=== PATIENT | female | born 1960 | race Caucasian/White ===

== ENCOUNTER → 2018-05-06 14:51 | Outpatient (CLI) | payer MEDICARE, SELFPAY ==
--- NOTE | 2018-05-06 14:52 | XR_ITS ---
XR foot wt bearing RT 3V, XR foot wt bearing LT 3V Ordering Physician: Comfort Delgado DPM Patient Age: 58 years: Female HISTORY: ITS.REASON: pain Right foot pain TECHNIQUE: Left foot 3 view weightbearing Right foot 3 view weightbearing COMPARISON : No studies prior to today ====== LEFT FOOT 3 view weightbearing Metatarsals and tarsals appear intact. Question possible developing relative pes planus on lateral view. Scant plantar calcaneal spur developing. 4 -5 mm length. The joint spaces are well-maintained no erosions. No evidence of fracture or stress fracture on these views. IMPRESSION------ No fracture or acute findings. . ======= RIGHT FOOT 3 view weightbearing Metatarsals and tarsals appear intact. Question possible developing pes planus on on lateral view . Scant prominence reflecting minor plantar calcaneal spur developing. 4 mm length. The joint spaces are well-maintained no erosions. No definitive fracture evident. . I would only note there may be some very subtle relative cortical thickening at the medial aspect of the second metatarsal but. Is there pain in this region. Could reflect subtle stress reaction particularly noted a small area upon the lateral aspect of the bone here as well. It requires correlation. Also noted there diffuse linear artifact on these images of both of the right and left foot. IMPRESSION: -------- No definitive fracture. Only question some subtle cortical cortical thickening at the second metatarsal. If pain in this region could reflect a very subtle stress response but equivocal
== END ==
PROVIDERS: Visit Provider Podiatrist
DX: M79.673 Pain in unspecified foot (principal)
CPT/HCPCS: 73630

== ENCOUNTER → 2018-08-09 12:26 | Outpatient (POV) | payer MEDICARE, SELFPAY | PROVIDERS: Visit Provider Specialist | DX: M79.671 Pain in right foot (principal); M79.672 Pain in left foot; R20.0 Anesthesia of skin; R20.2 Paresthesia of skin | CPT/HCPCS: 95886; 95909 ==

== ENCOUNTER 2018-08-24 10:00 | Outpatient (RCR) | payer MEDICARE, SELFPAY ==
--- NOTE | 2018-07-19 13:26 | HMH.PTOPWND ---
Rehab Outpt Wound Evaluation Rehab OP Wound Evaluation Start: 07/19/18 13:01 Freq: Status: Active Protocol: Document 07/19/18 13:16 PHOLUKE (Rec: 07/19/18 13:26 PHORNE [id number]) Electronically Signed By Real Woody, PT 07/19/18 13:16 Subjective/History History History Pt is 58 yowf who presents with c/o carlos a LE edema and pain x ~1 yr with insidious onset of symptoms. She reports pain is intermittent and from her knees distal carlos a. She reports swellling is worse with being on her feet a lot during the day. She reports PMH of HTN, colitis, migraine GALEANO, OA, and hiatal hernia. Subjective Subjective Currently she c/o pain in carlos a LE 2/10, but reports 10/10 at worst. Lymphedema Eval Classification of Lymphedema Secondary Lymphedema Yes Stemmer's sign Stemmer's Sign no Stage of Lymphedema Lymphedema stages Stage 0 (subjective c/o heaviness and aching) Pain Scale Pain Scale (0-10) 2 Affected Extremities Areas Affected by Lymphedema/Edema Right Lower Extremity Left Lower Extremity Manual Lymphatic Drainage Treatment Area MLD Treatment Area Right Lower Extremity Left Lower Extremity Wound Problems/Impairments Impairments Problems/Impairmments Palpation Tenderness Increased Edema Impaired Self Care/Self Management Prognosis Rehab Potential Fair Clinical Impression Consistent with Diagnosis Yes Short Term Goals Number of Weeks 4 Decreased Palpation Tenderness Yes: to min Decrease Edema Yes: by 25% Decrease Subjective C/O Pain Yes: 1/10 Patient to Understand Lymphedema Yes Treatment and Exercises Shelter Goals Number of Weeks 8 Decreased Palpation Tenderness Yes: to none Decrease Edema Yes: by 75% Decrease Subjective C/O Pain Yes: 0/10 Patient to be Ind w/ HEP Yes Patient to Adhere Lymphedema Precautions Yes Outpatient Therapy Plan of Care Treatment Plan May Include Therapeutic Exercise Including Home Yes Exercise Program Manual Therapy Techniques Yes Neuromuscular Re-education Yes Orthotics/Bracing/Splinting Yes Manual Lymphatic Drainage Yes Eval/Re-Eval Yes Frequency
== END 2018-08-24 10:15 | disposition home or self-care (01) ==
LOC: PT 10:00
PROVIDERS: Visit Provider Podiatrist
DX: R60.0 Localized edema (principal)
CPT/HCPCS: 97110; 97140; 97162; 97760

== ENCOUNTER → 2018-09-13 12:41 | Outpatient (CLI) | payer MEDICARE, SELFPAY ==
--- NOTE | 2018-09-13 12:44 | US_ITS ---
US Arterial Ankle Brachial Ind History: Leg pain, claudication, leg numbness, skin changes ORDERING PHYSICIAN: Comfort Delgado DPM PATIENT AGE: 58 years TECHNIQUE: Segmental pressures obtained of both right and left leg. These are compared to brachial blood pressure to yield index at each level sampled including summary DENISSE. The data sheets from the procedure are available in PACS FINDINGS Rest study only performed today No prior studies available for comparison. Blood pressures reported are in millimeters mercury. RIGHT LEG DENISSE = 1.0. RIGHT LEG TBI=.9 Brachial BP: 152 Thigh BP: 150 Calf BP: 149 Ankle PT: 157 Ankle DP : 145 Digit =134 LEFT LEG DENISSE = 1.0 LEFT LEG TBI= 1.1 Brachial BPD: 149 Thigh BP: 153 Calf BP: 138 Ankle PT:154 Ankle DP: 153 Digit = 161 Pulses and waveforms: Normal IMPRESSION: The ABIs as reported above are within normal limits. Waveforms and pulses are also unremarkable.
== END ==
PROVIDERS: PCP Family Medicine; Visit Provider Podiatrist
DX: R09.89 Other specified symptoms and signs involving the circulatory and respiratory systems (principal)
CPT/HCPCS: 93922

== ENCOUNTER → 2019-11-24 10:05 | Outpatient (CLI) | payer MEDICARE, SELFPAY ==
--- NOTE | 2019-11-24 10:13 | MM_ITS ---
PROCEDURE: MM DIG SCREENING MAMM BI W/CAD CLINICAL INDICATION: SCREENING There is no personal or family history of breast cancer COMPARISON: None available for review TECHNIQUE: Standard CC and MLO images and 3D Tomosynthesis was obtained. R2 CAD reviewed. FINDINGS: Minimal scattered fibroglandular densities are seen in the central portions and subareolar regions of both breasts. There are oval benign-appearing calcifications left breast. There is no suspicious lesion and no suspicious microcalcifications. IMPRESSION: Fibrofatty parenchyma with no suspicious lesions seen BI-RAD Category: 2 Benign Finding(s) FOLLOW-UP: 1YR 1 Year Follow-up (A letter has been sent to the patient regarding results of the study.) Dictated by: Dr. Arsalan Bruce MD 11/26/2019 11:[address] Arsalan Bruce MD in [place] 11/26/2019 11:47
== END ==
PROVIDERS: PCP Family Medicine; Visit Provider Family Medicine
DX: Z12.31 Encounter for screening mammogram for malignant neoplasm of breast (principal)
CPT/HCPCS: 77063; 77067

== ENCOUNTER → 2020-10-02 14:19 | Outpatient (POV) | payer MEDICARE, SELFPAY | PROVIDERS: Visit Provider Dermatology | DX: Z00.00 Encounter for general adult medical examination without abnormal findings (principal) ==

== ENCOUNTER → 2022-01-21 08:05 | Outpatient (CLI) | payer MEDICARE, SELFPAY ==
--- NOTE | 2022-01-21 08:16 | MM_ITS ---
PROCEDURE INFORMATION: Exam: MG Bilateral Screening 3D Mammography Exam date and time: 01/21/2022 8:28 AM Age: 62 years old Clinical indication: Screening examination. No family history of breast cancer. TECHNIQUE: Imaging protocol: Bilateral Screening tomosynthesis and 2D mammography including computer-aided detection (CAD) when performed. COMPARISON: 1. MG MM DIG SCREENING MAMM BI W/CAD 11/24/2019 10:29 AM 2. MG MAMMO SPOUT WORKER 01/29/2009 1:46 PM 3. SD MAMMO SPOUT WORKER 08/28/2008 11:07 AM FINDINGS: MAMMOGRAPHY: Breast composition: The breast tissue is composed of scattered areas of fibroglandular density. Mass: No suspicious mass. Architectural distortion: None. Calcifications: No suspicious calcifications. Asymmetric density: None. Skin thickening: None. Axillary adenopathy: None. IMPRESSION: No mammographic evidence of malignancy. Annual screening is recommended unless otherwise clinically indicated. ASSESSMENT: BI-RADS Category 1: Negative
--- NOTE | 2022-01-21 08:16 | XR_ITS ---
FINAL REPORT TECHNIQUE: Bone densitometry calculations of the lumbar spine and both hips were obtained. CLINICAL HISTORY: post menopausal FINDINGS: DEXA BONE DENSITY AXIAL SKELETON Using L1-4, the bone mineral density of the spine is 1.228 g/cm2, corresponding to T-score of 1.6. Using the left hip, the bone mineral density of the femoral neck is 0.835 g/cm2, corresponding to a T-score of -0.9. Using the right hip, the bone mineral density of the femoral neck is 0.921 g/cm2, corresponding to a T-score of --0.2. NOTE: T-score: Standard deviation compared with peak bone mass of young adult mean. *Following the recommendations of the International Society of Bone densitometry, classification of hip BMD is based on the lower of two T-scores; total hip or femoral neck. IMPRESSION: Normal bone mineral density of the lumbar spine and hips. Reviewed, Interpreted and Dictated by Jose Ledesma MD Transcribed by Ashlee Persaud Authenticated by Jose Ledesma MD on 01/21/2022 12:08:12 PM [facility]
== END ==
PROVIDERS: PCP Family Medicine; Visit Provider Family Medicine
DX: Z12.31 Encounter for screening mammogram for malignant neoplasm of breast (principal); Z78.0 Asymptomatic menopausal state
CPT/HCPCS: 77063; 77067; 77080

== ENCOUNTER → 2023-01-23 08:06 | Outpatient (CLI) | payer MEDICARE, SELFPAY ==
--- NOTE | 2023-01-23 08:13 | XR_ITS ---
FINAL REPORT TECHNIQUE: Bone densitometry calculations of the lumbar spine and hip were obtained. CLINICAL HISTORY: . post menopausal COMPARISON: 01/21/2022 FINDINGS: DEXA BONE DENSITY AXIAL SKELETON Using L1-4, the bone mineral density of the spine is 1.338 g/cm2, corresponding to T-score of 2.6. Previously measured 1.228 g/cm2, corresponding to T-score of 1.6. Using the right hip, the bone mineral density of the femoral neck is 0.802 g/cm2, corresponding to a T-score of -0.4. Previously measured 0.921 g/cm2, corresponding to T-score of -0.2. NOTE: T-score: Standard deviation compared with peak bone mass of young adult mean. *Following the recommendations of the International Society of Bone densitometry, classification of hip BMD is based on the lower of two T-scores; total hip or femoral neck. IMPRESSION: Normal bone mineral density of the lumbar spine and right hip. FRAX not reported because: Some T-score for Spine Total or hip Total or femoral neck at or above -1.0. Reviewed, Interpreted and Dictated by Moris Shelley III, MD Transcribed by Ashlee Persaud Authenticated and [facility]
--- NOTE | 2023-01-23 08:13 | MM_ITS ---
PROCEDURE INFORMATION: Exam: MG Bilateral Screening 3D Mammography Exam date and time: 01/23/2023 8:15 AM Age: 63 years old Clinical indication: Screening examination TECHNIQUE: Imaging protocol: Bilateral Screening tomosynthesis and 2D mammography including computer-aided detection (CAD) when performed. COMPARISON: 1. MG MM DIG SCREENING MAMM BI W/CAD 01/21/2022 8:28 AM 2. MG MM DIG SCREENING MAMM BI W/CAD 11/24/2019 10:29 AM FINDINGS: MAMMOGRAPHY: Breast composition: There are scattered areas of fibroglandular density. Mass: None. Architectural distortion: None. Calcifications: No suspicious calcifications. Asymmetric density: None. Skin thickening: None. Axillary adenopathy: None. IMPRESSION: No mammographic evidence of malignancy. Annual screening is recommended unless otherwise clinically indicated. ASSESSMENT: BI-RADS Category 1: Negative
--- NOTE | 2023-01-23 08:14 | XR_ITS ---
FINAL REPORT CLINICAL HISTORY: BURSITIS, pain @ Lt knee x yrs FINDINGS: Three views of the left knee reveal no evidence of fracture or dislocation. The bony alignment is normal. The joint spaces are preserved. There is no evidence of joint effusion. No localized soft tissue abnormality is seen. IMPRESSION: No acute abnormality identified. Reviewed, Interpreted and Dictated by Moris Shelley III, MD Transcribed by Ashlee Persaud Authenticated and [facility]
== END ==
PROVIDERS: PCP Family Medicine; Visit Provider Family Medicine
DX: Z12.31 Encounter for screening mammogram for malignant neoplasm of breast (principal); Z78.0 Asymptomatic menopausal state; Z13.820 Encounter for screening for osteoporosis; M70.50 Other bursitis of knee, unspecified knee
CPT/HCPCS: 73562; 77063; 77067; 77080

== ENCOUNTER 2024-01-28 14:38 | Outpatient (CLI) | payer MEDICARE, SELFPAY ==
--- NOTE | 2024-01-28 14:47 | MM_ITS ---
PROCEDURE INFORMATION: Exam: MG Bilateral Screening 3D Mammography Exam date and time: 01/28/2024 2:52 PM Age: 64 years old Clinical indication: Screening examination TECHNIQUE: Imaging protocol: Bilateral Screening tomosynthesis and 2D mammography including computer-aided detection (CAD) when performed. COMPARISON: 1. MG MM DIG SCREENING MAMM BI W/CAD 01/23/2023 8:15 AM 2. MG MM DIG SCREENING MAMM BI W/CAD 01/21/2022 8:28 AM FINDINGS: MAMMOGRAPHY: Breast composition: There are scattered areas of fibroglandular density. Mass: None. Architectural distortion: None. Calcifications: No suspicious calcifications. Asymmetric density: None. Skin thickening: None. Axillary adenopathy: None. IMPRESSION: No mammographic evidence of malignancy. Annual screening is recommended unless otherwise clinically indicated. ASSESSMENT: BI-RADS Category 1: Negative
== END 2024-01-28 23:59 ==
LOC: RAD 14:38
PROVIDERS: PCP Family Medicine; Visit Provider Family Medicine
DX: Z12.31 Encounter for screening mammogram for malignant neoplasm of breast (principal)
CPT/HCPCS: 77063; 77067

== ENCOUNTER 2024-04-09 08:32 | Emergency (ER) | payer MEDICARE, SELFPAY ==
[2024-04-09 08:45] VITALS: BP 138/66; PULSE 135; RESP 18; TEMP 36.8; O2SAT 97; BMI 29.2
--- NOTE | 2024-04-09 09:08 | ED_ITS ---
Discharge Plan Disposition Patient Disposition: Home, Self-Care Condition: Good Prescriptions Prescriptions: No Action loratadine 10 mg tablet 10 mg PO DAILY 30 Days Qty: 30 propranolol 20 mg tablet 20 mg PO BID 90 Days mxgtczchuh-afrbnzdokndhi-ekrw 50-325-40 mg tablet 1 tab PO NEEDED PRN (Reason: headaches) 8 Days diclofenac sodium [Voltaren] 1 % gel 4 g TOPICAL QID Qty: 30 2RF Rx Instructions: apply to single knee, ankle, foot; gently massage into area; for foot includes sole/toes/top of foot lisinopril 10 mg tablet 10 mg PO DAILY 30 Days tramadol 50 mg tablet 50 mg PO Q8H 3 Days Qty: 9 0RF losartan 50 mg tablet 50 mg PO DAILY Patient Comments: TAKE 1 TABLET BY MOUTH DAILY atorvastatin 40 mg tablet 40 mg PO DAILY amitriptyline 25 mg tablet See Rx Instructions .ROUTE .COMPLEX Patient Comments: TAKE 1 TO 2 TABLETS BY MOUTH EVERY DAY AT BEDTIME Rx Instructions: TAKE 1 TO 2 TABLETS BY MOUTH EVERY DAY AT BEDTIME baclofen 10 mg tablet 10 mg PO BID Patient Comments: TAKE 1 TABLET BY MOUTH TWICE DAILY omeprazole 20 mg capsule,delayed release(DR/EC) 20 mg PO DAILY Patient Comments: TAKE 1 CAPSULE BY MOUTH EVERY DAY 30 MINUTES BEFORE BREAKFAST diclofenac sodium 75 mg tablet,delayed release (DR/EC) 75 mg PO BID Patient Comments: TAKE 1 TABLET BY MOUTH TWICE DAILY topiramate 50 mg tablet 50 mg PO BID Patient Comments: TAKE 1 TABLET BY MOUTH TWICE DAILY Referrals Follow up/Referrals: Mik Sultana MD [Primary Care Provider] - See instructions Activity Restrictions/Add. Instructions Additional Instructions/Restrictions: Go home and rest. It would be best if you rested tomorrow too. Resume your normal migraine headache medication. Follow up with your regular doctor. GO TO THE ER FOR ANY WORSENING SYMPTOMS OR CONCERN, ESPECIALLY BOWEL OR BLADDER ISSUES, SADDLE AREA NUMBNESS, FEVER, ETC Clinical Impressions Clinical Impression: Migraine Instructions Patient Instructions: Ketorolac Injection, Dexamethasone Injection Discharge ED Provider: Imtiaz Cohen [facility] General Stated complaint: migraine, nausea Mode of Arrival: Ambulatory Source of Information: Patient Limitations: No Limitations Time Seen by Provider: 04/09/24 09:07 Description of Symptoms (Recalled from Triage Doc. by RN): Pt's symptoms are GALEANO. HEENT Symptoms (Recalled from RN notes): Yes Resp Symptoms (Recalled from RN notes): No Skin Symptoms (Recalled from RN notes): No MS Symptoms (Recalled from RN notes): No Functional Status (Recalled from RN notes): n/a History of Present Illness Provider Complaint: She states that she has had her normal migraine symptoms since around 0500 this am. She has took her migraine medication and it has not helped. In the past she has came in to have shots when her migraine medication did not work. She states that her symptoms feel like her normal symptoms. She denies that this is the worst head ache of her life. Related Data Home Medications Medication Instructions Recorded Confirmed kngulfybzr-klkuakmpgqxhj-zqgoknxh 1 tab PO NEEDED PRN headaches 8 05/06/18 04/09/24 50 mg-325 mg-40 mg tablet days loratadine 10 mg tablet 10 mg PO DAILY allergies 30 days 05/06/18 04/09/24 ##30 propranolol 20 mg tablet 20 mg PO BID blood pressure 90 days 05/06/18 04/09/24 lisinopril 10 mg tablet 10 mg PO DAILY 30 days 08/24/18 08/24/18 amitriptyline 25 mg tablet See Rx Instructions .Route .COMPLEX 04/09/24 04/09/24 atorvastatin 40 mg tablet 40 mg PO DAILY 04/09/24 04/09/24 baclofen 10 mg tablet 10 mg PO BID 04/09/24 04/09/24 diclofenac sodium 75 mg 75 mg PO BID 04/09/24 04/09/24 tablet,delayed release losartan 50 mg tablet 50 mg PO DAILY 04/09/24 04/09/24 omeprazole 20 mg capsule,delayed 20 mg PO DAILY 04/09/24 04/09/24 release topiramate 50 mg tablet 50 mg PO BID 04/09/24 04/09/24 Previous Rx's Medication Instructions Recorded diclofenac sodium 1 % topical gel 4 g topical QID pain #30 grams 05/06/18 (Voltaren) tramadol 50 mg tablet 50 mg PO Q8H pain 3 days #9 tabs 08/24/18 Allergies Allergy/AdvReac Type Severity Reaction Status Date / Time codeine Allergy Unknown NA-NAUSEA/V Verified 04/09/24 09:03 [From Tylenol-Codeine #3] OMITING Worker's Comp Is this a Worker's Comp case?: No [facility] Disclaimer: The information contained in this section may have been updated after the patient was seen, as this information can be updated by other users. Social History Smoking Status: Never smoker alcohol intake: never current occupational status: other Travel in the last 8 weeks: None ROS Obtained: Yes All systems reviewed & no additional complaints except as documented Constitutional Constitutional: Denies chills, Denies fever(s), Reports headache(s) and Denies weakness Eyes Eyes: Denies eye discharge ENT Ears, Nose, Mouth, and Throat: Denies disequilibrium, Denies dizziness, Denies otalgia, Reports headache(s) and Denies sore throat Cardiovascular Cardiovascular: Denies chest pain Respiratory Respiratory: Denies shortness of breath, Denies chest congestion, Denies cough, Denies stridor and Denies wheezing Gastrointestinal Gastrointestingal: Denies nausea or vomiting Musculoskeletal Musculoskeletal: Reports system reviewed and no additional complaints, except as documented, Denies abnormal gait, Denies arthralgias and Denies numbness Integumentary/Breasts Skin/Breast: Denies rash Neurologic Neurologic: Reports as per HPI, Denies abnormal gait, Denies disequilibrium, Denies dizziness, Reports headache(s), Denies numbness, Denies paresthesias, Denies radicular pain and Denies weakness Allergic/Immunologic Allergic/Immunologic: Denies wheezing Physical Exam General General appearance: alert and in no apparent distress Head Head exam: atraumatic, normocephalic and normal inspection Eye Eye exam: Present normal appearance, PERRL and EOMI ENT ENT exam: Present normal exam, normal oropharynx, mucous membranes moist, TM's normal bilaterally and normal external ear exam Neck Neck exam: Present normal inspection, full ROM and trachea midline; Absent meningismus or lymphadenopathy Chest Chest inspection: Present normal inspection and symmetric chest wall rise; Absent tenderness Respiratory Respiratory exam: Present normal lung sounds bilaterally; Absent respiratory distress Cardiovascular Cardiovascular exam: Present regular rate and normal rhythm; Absent JVD Abdominal Exam Abdominal exam: Present soft and normal bowel sounds; Absent distention, tenderness or guarding Extremities Exam Extremities exam: Present normal inspection, full ROM and normal capillary refill; Absent calf tenderness Back Exam Back exam: Present normal inspection; Absent tenderness Neurological Exam Neurological exam: Present alert, oriented X3, CN II-XII intact, normal gait and reflexes normal; Absent motor sensory deficit Expanded Neurological Exam Speech: Present fluid speech Cranial nerves: Normal: EOM function (II, III, IV, ), facial sensation (V), facial palsy (VII), gag reflex (IX), spinal accessory function (XI) and tongue deviation (XII) Cerebellar function: normal gait Motor strength - LUE: 5/5 Motor strength - RUE: 5/5 Motor strength - LLE: 5/5 Motor strength - RLE: 5/5 Upper motor neuron exam: Normal: melly neglect, pronator drift, Babinski sign and sensory extinction Sensory exam upper extremity: Normal: light touch and 2 point discrimination Sensory exam lower extremity: Normal: light touch and 2 point discrimination DTR: 2+: biceps (L), biceps (R), patellar (L), patellar (R), Achilles tendon (L) and Achilles tendon (R) Psychiatric Psychiatric exam: Present normal affect and normal mood Skin Skin exam: Present warm, dry, intact and normal color Lymphatic Lymphatic Findings: no adenopathy Medical Decision Making Medical Records Medical records reviewed: No I reviewed the patient's medical records. Sadi Inquiry Pt receiving controlled substance: No Vital Signs: 04/09/24 08:45 Temperature 98.3 F Temperature Source Oral Pulse Rate [Right Radial] 135 H Respiratory Rate 18 Blood Pressure [Right Arm] 138/66 Blood Pressure Mean [Right Arm] 90 Blood Pressure Source [Right Arm] Automatic Cuff Blood Pressure Position [Right Arm] Sitting 02 Sat by Pulse Oximetry 97 Oxygen Delivery Method Room Air
[2024-04-09] MEDS: DEXAMETHASONE 4MG/ML 1ML VIAL 8 MG IM (09:32)
[2024-04-09] MEDS: KETOROLAC 60MG/2ML VIAL 30 MG IM (09:32)
[2024-04-09 09:58] VITALS: BP 138/66; PULSE 135; RESP 18; TEMP 36.8; O2SAT 97
== END 2024-04-09 09:58 | disposition home or self-care (01) ==
PROVIDERS: Emergency Provider Nurse Practitioner Family; PCP Family Medicine
DX: G43.909 Migraine, unspecified, not intractable, without status migrainosus (principal)
CPT/HCPCS: 96372; 99204; 99212; G0463; J1100; J1885

== ENCOUNTER 2025-02-06 13:03 | Outpatient (CLI) | payer MEDICARE, SELFPAY ==
--- OUTSIDE RECORDS SUMMARY | 2025-02-06 13:05 | XMS_ITS ---
Author Organization Unknown Vital Signs BpStanding BpSitting BpSupine Date Temperature HeartRate Weight Hei ght Spo2 Respiration Bmi HeadCircumference FieldCount TimeRecorded NeckCircumferen ce WaistCircumference Pulse 130/80 12/27 00:00 :00 97.5 85 160,0 5,5 27.0 4 6 01/13/2025 13:30:00 126/78 07/05 00:00 :00 98.0 73 166,0 5,5 28.0 5 6 01/13/2025 13:30:00
--- NOTE | 2025-02-06 13:06 | XR_ITS ---
FINAL REPORT TECHNIQUE: Bone densitometry calculations of the lumbar spine and left hip were obtained. CLINICAL HISTORY: screening COMPARISON: 01/23/2023 FINDINGS: Using L1-4, the bone mineral density of the spine is 1.230 g/cm2, corresponding to T-score of 1.7. Using the left hip, the bone mineral density of the femoral neck is 0.788 g/cm2, corresponding to a T-score of -1.3. Using the right hip, the bone mineral density of the femoral neck is 0.722 g/cm?, corresponding to a T-score of -1.1. NOTE: T-score: Standard deviation compared with peak bone mass of young adult mean. *Following the recommendations of the International Society of Bone densitometry, classification of hip BMD is based on the lower of two T-scores; total hip or femoral neck. IMPRESSION: Diminished bone mineral density of the bilateral hips consistent with osteopenia. Normal bone mineral density of the lumbar spine. Reviewed, Interpreted and Dictated by Jose Ledesma MD Transcribed by Tamra Longoria Authenticated and [facility]
--- NOTE | 2025-02-06 13:06 | MM_ITS ---
PROCEDURE INFORMATION: Exam: MG Bilateral Screening 3D Mammography Exam date and time: 02/06/2025 1:18 PM Age: 65 years old Clinical indication: Screening examination TECHNIQUE: Imaging protocol: Bilateral Screening tomosynthesis and 2D mammography including computer-aided detection (CAD) when performed. COMPARISON: 1. MG MM DIG SCREENING MAMM BI W/CAD 01/28/2024 2:52 PM 2. MG MM DIG SCREENING MAMM BI W/CAD 01/23/2023 8:15 AM FINDINGS: MAMMOGRAPHY: Breast composition: There are scattered areas of fibroglandular density. Mass: None. Architectural distortion: None. Calcifications: No suspicious calcifications. Asymmetric density: None. Skin thickening: None. Axillary adenopathy: None. IMPRESSION: No mammographic evidence of malignancy. Annual screening is recommended unless otherwise clinically indicated. ASSESSMENT: BI-RADS Category 1: Negative.
== END 2025-02-06 23:59 | disposition home or self-care (01) ==
LOC: RAD 13:04
PROVIDERS: PCP Family Medicine; Visit Provider Family Medicine
DX: M85.89 Other specified disorders of bone density and structure, multiple sites (principal); M15.0 Primary generalized (osteo)arthritis; Z12.31 Encounter for screening mammogram for malignant neoplasm of breast
CPT/HCPCS: 77063; 77067; 77080